=== PATIENT | male | born 1995 | race African-American/Black ===

== ENCOUNTER 2019-04-08 18:32 | Emergency (ER) | payer OTHER ==
[~2019-04-08] VITALS: Ht 175.3 cm; Wt 81.6 kg
[~2019-04-08 18:32] MED LIST: ADDERALL XR25 MG PO; BUDE1AER5 INH; FLUT0.05 NAS; LORA10TA3 PO; PROVENTIL IN
[2019-04-08 18:40] VITALS: TEMP 98.2
[2019-04-08 22:14] VITALS: BP 132/92
== END 2019-04-08 22:15 | disposition home or self-care (01) ==
LOC: ED 18:32
PROC: 0HQFXZZ Repair Right Hand Skin, External Approach (ICD-10-PCS; principal; 2019-04-08)
PROC: 2W3JX1Z Immobilization of Right Finger using Splint (ICD-10-PCS; 2019-04-08)
DX: S61.212A Laceration without foreign body of right middle finger without damage to nail, initial encounter (principal); W20.8XXA Other cause of strike by thrown, projected or falling object, initial encounter
CPT/HCPCS: 90471; 90715; 96372; 99283; J0696; J2001